=== PATIENT | female | born 1990 | race Caucasian/White ===

== ENCOUNTER 2018-10-06 10:02 | Inpatient (IN) ==
[2018-10-06] MEDS ORDERED: ONDANSETRON 4 MG/2 ML VIAL IV PRN (10:16)
[2018-10-06] MEDS ORDERED: OXYTOCIN 10 UNIT/ML VIAL IM ONE (10:25)
[2018-10-06] MEDS ORDERED: OXYTOCIN/LR 30 UNIT/1,000 ML BAG IV ONE (10:25)
[2018-10-06] MEDS ORDERED: LACTATED RINGERS 1,000 ML IV ONE ×2 (10:26→10:28)
[2018-10-06] MEDS ORDERED: FAMOTIDINE 20 MG/2 ML VIAL IV ONE (10:28)
[2018-10-06] MEDS ORDERED: CITRIC ACID/SODIUM CITRATE 30 ML UDCUP PO ONE (10:28)
[2018-10-06] MEDS ORDERED: LACTATED RINGERS 1,000 ML IV SCH ×2 (10:30→14:00)
[2018-10-06 10:44] LABS: Basophils % 0.2 % (0.0-0.8); Eosinophils % 0.2 % (0.00-10.9); Hematocrit 38.8 VOL% (35.7-47.0); Hemoglobin 12.6 GM/DL (12.0-16.0); Immature Granulocytes % 0.9 %; Lymphocytes # 1.4 10*3/uL (1.4-4.0); Mean Corpuscular HGB Conc 32.5 GM/DL (32-36); Mean Corpuscular Volume 90.7 FL (87-102); Mean Platelet Volume 10.6 FL (9.6-12.0); Monocytes % 4.9 % (1.7-12.7); Neutrophils % 81.8 % (38.7-73.9); Platelet Count 231 T/CUMM (130-400); Red Blood Count 4.28 MC/CUMM (3.8-5.5); Red Cell Distribution Width 13.7 % (9.3-17.3); White Blood Count 11.2 T/CUMM (4-12)
[2018-10-06 10:55] LABS: INR 0.9; PT Patient Result 9.6 SECS
[2018-10-06 11:25] LABS: Albumin 2.9 G/DL (3.4-5.0); Bilirubin,Total 0.8 MG/DL (0.2-1.0); Calcium 9.7 MG/DL (8.5-10.1); Osmolality,Calculated 273.5 MOS/KG (273-304); Total Protein 6.9 G/DL (6.4-8.3); Uric Acid 4.3 MG/DL (2.6-6.0)
[2018-10-06] MEDS ORDERED: ceFAZolin 3,000 MG in SYRINGE 1 EACH IV ONE (11:52)
[2018-10-06] MEDS ORDERED: MORPHINE 10 MG/10 ML VIAL ONE (12:07)
[2018-10-06] MEDS ORDERED: fentaNYL 100 MCG/2 ML VIAL ONE (12:07)
[2018-10-06] MEDS ORDERED: PHENYLEPHRINE 1 MG/10 ML SYRINGE IV ONE (12:07)
[2018-10-06] MEDS ORDERED: BUPIVACAINE SPINAL 0.75% 2 ML AMP SPINAL ONE (12:08)
[2018-10-06 13:35] LABS: Cord Venous Blood HCO3 26.6 MMOL/L; Cord Venous Blood PCO2 54.8 MMHG; Cord Venous Blood PO2 18.4 MMHG
[2018-10-06 13:37] LABS: Cord Arterial Blood HCO3 21.4 MMOL/L
[2018-10-06] MEDS ORDERED: ACETAMINOPHEN 325 MG TABLET PO PRN (13:49)
[2018-10-06] MEDS ORDERED: RHO(D) IMMUNE GLOBULIN 300 MCG SYRINGE IM ONE (13:49)
[2018-10-06] MEDS ORDERED: SIMETHICONE CHEW 80 MG TABLET PO PRN (13:49)
[2018-10-06] MEDS ORDERED: MAGNESIUM HYDROXIDE SUSP 30 ML UDCUP PO PRN (13:49)
[2018-10-06] MEDS ORDERED: OXYTOCIN/LR 20 UNIT/1,000 ML BAG IV ONE (13:49)
[2018-10-06 14:04] LABS: Apearance,Urine CLEAR (Clear); Bilirubin,Urine Negative (Negative); Blood, Urine Negative (Negative); Glucose,Urine (UA) Negative (Negative); Hyaline Casts,Urine 1 /LPF (0-3); Ketones,Urine 20 mg/dL (Negative); Mucus,Urine Occasional /LPF (Occasional); Nitrite,Urine Negative (Negative); Protein,Urine Negative; RBC,Urine <1 /HPF (0-4); Squamous Epithelial Cell,Urine Occasional /HPF (0-10); Urine Color Yellow (Yellow); Urine Specific Gravity 1.013 (1.001-1.035); Urine Urobilinogen < 2.0 EU/DL (0.2-1.0)
[2018-10-06] MEDS ORDERED: BUPIVACAINE 0.5% 50 ML VIAL ONE (14:09)
[2018-10-06] MEDS ORDERED: EPINEPHrine 1 MG/ML VIAL ONE (14:09)
[2018-10-06] MEDS ORDERED: DEXAMETHASONE 4 MG/1 ML VIAL ONE (14:09)
[2018-10-06] MEDS: ceFAZolin 1,000 MG in SYRINGE 1 EACH IV SCH (20:22)
[2018-10-06] MEDS: DOCUSATE SODIUM 100 MG CAPSULE PO SCH (20:32)
[2018-10-06 21:39] LABS: Basophils # 0.1 10*3/uL (0.0-0.2); Basophils % 0.3 % (0.0-0.8); Hemoglobin 11.3 GM/DL (12.0-16.0); Immature Granulocytes % 0.8 %; Immature Granulocytes Absolute 0.16 #; Lymphocytes # 0.8 10*3/uL (1.4-4.0); Lymphocytes % 3.9 % (21.3-54.2); Mean Corpuscular HGB Conc 32.3 GM/DL (32-36); Mean Corpuscular Volume 90.4 FL (87-102); Mean Platelet Volume 10.6 FL (9.6-12.0); Monocytes % 3.3 % (1.7-12.7); Neutrophils % 91.7 % (38.7-73.9); Platelet Count 208 T/CUMM (130-400); Red Blood Count 3.87 MC/CUMM (3.8-5.5); Red Cell Distribution Width 13.5 % (9.3-17.3)
[2018-10-06 22:09] LABS: Lymphocytes 4 % (20-55); Segmented Neutrophils 93 % (50-85); Total Cells Counted 100
[2018-10-06 22:10] LABS: Hypochromasia Slight; Platelet Estimate Normal
[2018-10-07] MEDS: IBUPROFEN 800 MG TABLET PO PRN ×3 (00:34→20:08)
[2018-10-07] MEDS: ceFAZolin 1,000 MG in SYRINGE 1 EACH IV SCH (03:57)
[2018-10-07 05:15] LABS: Basophils % 0.2 % (0.0-0.8); Hemoglobin 10.6 GM/DL (12.0-16.0); Immature Granulocytes % 0.9 %; Immature Granulocytes Absolute 0.14 #; Lymphocytes # 1.4 10*3/uL (1.4-4.0); Lymphocytes % 8.6 % (21.3-54.2); Mean Corpuscular HGB Conc 32.1 GM/DL (32-36); Mean Corpuscular Volume 90.9 FL (87-102); Mean Platelet Volume 10.8 FL (9.6-12.0); Monocytes % 5.8 % (1.7-12.7); Neutrophils % 84.5 % (38.7-73.9); Platelet Count 202 T/CUMM (130-400); Red Blood Count 3.63 MC/CUMM (3.8-5.5); Red Cell Distribution Width 13.6 % (9.3-17.3); White Blood Count 16.3 T/CUMM (4-12)
[2018-10-07] MEDS: DOCUSATE SODIUM 100 MG CAPSULE PO SCH ×2 (08:29→20:09)
[2018-10-07] MEDS: METOCLOPRAMIDE 10 MG TABLET PO SCH ×3 (08:29→23:42)
[2018-10-07] MEDS: MULTIVITAMIN (PRENATAL) TABLET PO SCH (08:29)
[2018-10-07] MEDS: MAGNESIUM HYDROXIDE SUSP 30 ML UDCUP PO SCH ×2 (10:28→20:09)
[2018-10-08] MEDS: IBUPROFEN 800 MG TABLET PO PRN (04:32)
[2018-10-08 08:22] VITALS: BP 142/98
[2018-10-08] MEDS: DOCUSATE SODIUM 100 MG CAPSULE PO SCH (09:05)
[2018-10-08] MEDS: MULTIVITAMIN (PRENATAL) TABLET PO SCH (09:05)
== END 2018-10-08 11:20 | disposition home or self-care (01) | DRG 785 ==
LOC: N.LD 10:02 → N.OB 17:08
PROVIDERS: ADMIT Obstetrics & Gynecology; ATTEND Obstetrics & Gynecology